=== PATIENT | male | born 1950 | race Caucasian/White ===

== ENCOUNTER 2016-11-18 15:53 | Inpatient (IN) | payer OTHER ==
[~2016-11-18] VITALS: Ht 170.2 cm; Wt 128.0 kg
[~2016-11-18 15:53] MED LIST: ACET500C5 PO; ACID1GRA2 PO; ASPI-515 PO; CARV3.1212 PO; CLON0.2T PO; ERTA1VIA IV; HYDR25TA6 PO; LISI-170 PO; NAPR220T77 PO; PRAV10TA2 PO; TRAM50TA2 PO; VERA180C2 PO
[2016-11-18] MEDS ORDERED: SODIUM CHLORIDE 0.9% 1,000 ML IV ONE ×2 (16:09→18:12)
[2016-11-18] MEDS ORDERED: SODIUM CHLORIDE FLUSH 10ML SYR IVF ONE (16:30)
[2016-11-18 16:35] LABS: HEMOGLOBIN 14.4 g/dL (13.7-18.0)
[2016-11-18 16:43] LABS: ASPARTATE AMINO TRANSFERASE 12 U/L (15-37); BLOOD UREA NITROGEN 23 mg/dL (7-18)
[2016-11-18 17:03] LABS: DIFF TOTAL CELLS COUNTED 100 CELL DIFF
[2016-11-18 17:05] LABS: VERIFY COUNTS? YES
[2016-11-18] MEDS ORDERED: CEFTRIAXONE PMX 1GM/50ML 50 ML IVPB ONE (18:00)
[2016-11-18] MEDS ORDERED: ACETAMINOPHEN 500 MG TABLET ONE (18:14)
[2016-11-18] MEDS ORDERED: CEFTRIAXONE PMX 1GM/50ML 50 ML ONE (18:14)
[2016-11-18] MEDS ORDERED: ONDANSETRON 2MG/ML, 2ML IVPush PRN (18:30)
[2016-11-18] MEDS ORDERED: ACETAMINOPHEN 500 MG TABLET PO ONE (18:30)
[2016-11-18] MEDS ORDERED: SODIUM CHLORIDE FLUSH 10ML SYR IVF PRN (18:30)
[2016-11-18] MEDS ORDERED: ONDANSETRON 2MG/ML, 2ML IVP PRN (19:00)
[2016-11-18] MEDS ORDERED: POLYETHYLENE GLYCOL 17 GM PACKET PO PRN (19:00)
[2016-11-18] MEDS ORDERED: BISACODYL 10 MG SUPP PR PRN (19:00)
[2016-11-18] MEDS ORDERED: MORPHINE SULFATE 4 MG/ML, 1ML IVPush PRN (19:00)
[2016-11-18] MEDS ORDERED: KETOROLAC 30 MG/1 ML IVPush PRN (19:00)
[2016-11-18 19:36] VITALS: BP 114/68
[2016-11-18] MEDS: NS + 20MEQ KCL 1,000 ML IV SCH (20:12)
[2016-11-18] MEDS: VERAPAMIL ER 180MG TABLET.ER PO SCH (20:22)
[2016-11-18] MEDS: LACTOBACILLUS 1GM/ PACKET PO SCH (20:22)
[2016-11-18] MEDS: CARVEDILOL 3.125 MG TABLET PO SCH (20:22)
[2016-11-18] MEDS: HEPARIN 5,000 UNITS/ML, 1ML SQ SCH (20:23)
[2016-11-19 02:58] VITALS: BP 120/71
[2016-11-19] MEDS: NS + 20MEQ KCL 1,000 ML IV SCH ×3 (04:13→21:33)
[2016-11-19] MEDS: ACETAMINOPHEN 325 MG TABLET PO PRN ×2 (04:13→20:57)
[2016-11-19] MEDS: HEPARIN 5,000 UNITS/ML, 1ML SQ SCH ×3 (05:00→21:04)
[2016-11-19 06:29] LABS: HEMOGLOBIN 12.9 g/dL (13.7-18.0)
[2016-11-19 06:41] LABS: BLOOD UREA NITROGEN 19 mg/dL (7-18)
[2016-11-19 06:46] LABS: ASPARTATE AMINO TRANSFERASE 10 U/L (15-37)
[2016-11-19 07:07] VITALS: BP 111/66
[2016-11-19 07:11] LABS: DIFF TOTAL CELLS COUNTED 100 CELL DIFF
[2016-11-19 07:13] LABS: VERIFY COUNTS? YES
[2016-11-19] MEDS: PRAVASTATIN 20 MG TABLET PO SCH ×2 (07:53→20:58)
[2016-11-19] MEDS: SENNA/DOCUSATE TABLET PO SCH (07:54)
[2016-11-19] MEDS: CARVEDILOL 3.125 MG TABLET PO SCH ×2 (07:54→20:58)
[2016-11-19] MEDS: LACTOBACILLUS 1GM/ PACKET PO SCH ×3 (07:54→20:58)
[2016-11-19] MEDS: VERAPAMIL ER 180MG TABLET.ER PO SCH ×2 (07:54→20:58)
[2016-11-19] MEDS: ASPIRIN 81 MG TABLET EC PO SCH (07:54)
[2016-11-19 14:09] VITALS: BP 97/59
[2016-11-19 16:46] VITALS: BP 113/72
[2016-11-19] MEDS: CEFTRIAXONE PMX 1GM/50ML 50 ML IV SCH (18:30)
[2016-11-19 19:46] VITALS: BP 113/64
[2016-11-20 02:00] VITALS: BP 99/61
[2016-11-20] MEDS: HEPARIN 5,000 UNITS/ML, 1ML SQ SCH ×3 (05:10→22:05)
[2016-11-20] MEDS: NS + 20MEQ KCL 1,000 ML IV SCH ×2 (05:10→13:38)
[2016-11-20 06:10] LABS: HEMOGLOBIN 12.3 g/dL (13.7-18.0)
[2016-11-20 06:16] LABS: ASPARTATE AMINO TRANSFERASE 15 U/L (15-37); BLOOD UREA NITROGEN 15 mg/dL (7-18)
[2016-11-20 07:13] VITALS: BP 148/88
[2016-11-20] MEDS: LACTOBACILLUS 1GM/ PACKET PO SCH ×3 (08:25→22:05)
[2016-11-20] MEDS: CARVEDILOL 3.125 MG TABLET PO SCH ×2 (08:26→22:05)
[2016-11-20] MEDS: ASPIRIN 81 MG TABLET EC PO SCH (08:26)
[2016-11-20] MEDS: VERAPAMIL ER 180MG TABLET.ER PO SCH ×2 (08:27→22:06)
[2016-11-20] MEDS: SENNA/DOCUSATE TABLET PO SCH (08:27)
[2016-11-20 12:56] VITALS: BP 146/92
[2016-11-20] MEDS: CEFTRIAXONE PMX 1GM/50ML 50 ML IV SCH (18:36)
[2016-11-20 19:08] VITALS: BP 126/83
[2016-11-20] MEDS: PRAVASTATIN 20 MG TABLET PO SCH (22:06)
[2016-11-21 02:10] VITALS: BP 143/90
[2016-11-21 05:52] LABS: HEMOGLOBIN 12.9 g/dL (13.7-18.0)
[2016-11-21 06:35] VITALS: BP 166/97
[2016-11-21] MEDS: VERAPAMIL ER 180MG TABLET.ER PO SCH (07:38)
[2016-11-21] MEDS: CARVEDILOL 3.125 MG TABLET PO SCH (07:38)
[2016-11-21] MEDS: ASPIRIN 81 MG TABLET EC PO SCH (07:39)
[2016-11-21] MEDS: LACTOBACILLUS 1GM/ PACKET PO SCH (07:39)
[2016-11-21] MEDS: SENNA/DOCUSATE TABLET PO SCH (07:40)
[2016-11-21] MEDS: HEPARIN 5,000 UNITS/ML, 1ML SQ SCH (07:43)
[2016-11-21] MEDS ORDERED: SULF1TAB24 PO (08:39)
== END 2016-11-21 11:13 | disposition home or self-care (01) | DRG 871 ==
LOC: ED 18:36 → EDIP 18:41 → 3NE 19:21 → DCLOUNGE 11-21 10:47
PROVIDERS: ADMIT Family Medicine; ATTEND Family Medicine
DX: A41.9 Sepsis, unspecified organism (principal); N17.0 Acute kidney failure with tubular necrosis; E87.1 Hypo-osmolality and hyponatremia; D68.9 Coagulation defect, unspecified; N12 Tubulo-interstitial nephritis, not specified as acute or chronic; N39.0 Urinary tract infection, site not specified; E87.6 Hypokalemia; G89.29 Other chronic pain; K44.9 Diaphragmatic hernia without obstruction or gangrene; M19.90 Unspecified osteoarthritis, unspecified site; I10 Essential (primary) hypertension; G47.33 Obstructive sleep apnea (adult) (pediatric); E78.5 Hyperlipidemia, unspecified; B96.20 Unspecified Escherichia coli [E. coli] as the cause of diseases classified elsewhere; Z86.010 Personal history of colon polyps; Z86.19 Personal history of other infectious and parasitic diseases; Z87.891 Personal history of nicotine dependence; Z79.899 Other long term (current) drug therapy; Z88.0 Allergy status to penicillin
CPT/HCPCS: 36415; 71010; 80053; 81001; 83605; 84145; 85025; 85610; 85730; 87040; 87077; 87086; 87186; 93005; 96365; J0696; J1644; J3480; J7030

== ENCOUNTER 2018-04-05 11:13 | Inpatient (IN) | payer MEDICARE, OTHER ==
[~2018-04-05] VITALS: Ht 170.2 cm; Wt 127.0 kg
[~2018-04-05 11:13] MED LIST changes: -ACID1GRA2 PO; +ACID1GRA3 PO; +SULF1TAB24 PO
[2018-04-05] MEDS ORDERED: ACETAMINOPHEN 500 MG TABLET ONE (12:16)
[2018-04-05] MEDS ORDERED: ACETAMINOPHEN 500 MG TABLET PO ONE (12:30)
[2018-04-05] MEDS ORDERED: ONDANSETRON ODT 8 MG PO ONE (12:30)
[2018-04-05 12:41] LABS: BASOPHILS # (AUTO) 0.02 x10^3/uL (0-0.1); BASOPHILS % (AUTO) 0 % (0-1); EOSINOPHILS # (AUTO) 0.05 x10^3/uL (0-0.4); EOSINOPHILS % (AUTO) 0 % (1-7); LYMPHOCYTES # (AUTO) 0.39 x10^3/uL (1-3.4); LYMPHOCYTES % (AUTO) 2 % (22-44); MD NO; MEAN CORPUSCULAR HGB CONC 32.8 g/dL (33.2-36.2); MEAN CORPUSCULAR VOLUME 91.5 fL (81-97); MEAN PLATELET VOLUME 8.2 fL (7.4-10.4); MONOCYTES # (AUTO) 0.61 x10^3/uL (0.2-0.8); MONOCYTES % (AUTO) 4 % (2-9); NEUTROPHILS # (AUTO) 15.56 x10^3/uL (1.8-6.8); NEUTROPHILS % (AUTO) 94 % (42-75); PLATELET COUNT 304 x10^3/uL (130-400); RED BLOOD COUNT 4.98 x10^6/uL (4.38-5.82); RED CELL DISTRIBUTION WIDTH 14.6 % (9.4-14.8)
[2018-04-05] MEDS ORDERED: ONDANSETRON ODT 4 MG ONE (12:50)
[2018-04-05 12:54] LABS: ALANINE AMINOTRANSFERASE 25 U/L (12-78); ALBUMIN 3.6 g/dL (3.4-5.0); ANION GAP 6 mmol/L (5-15); CHLORIDE 106 mmol/L (98-107); CREATININE 1.08 mg/dL (0.7-1.3)
[2018-04-05 12:55] LABS: ALKALINE PHOSPHATASE 69 U/L (45-117); BILIRUBIN,TOTAL 0.9 mg/dL (0.2-1.0); TOTAL PROTEIN 7.7 g/dL (6.4-8.2)
[2018-04-05 12:57] LABS: MICROSCOPIC AUTO
[2018-04-05 12:58] LABS: CULTURE INDICATED? YES
[2018-04-05 13:02] LABS: INTERNATIONAL NORMALIZED RATIO 1.01 (0.93-1.1); PROTHROMBIN TIME 10.5 Seconds (9.6-11.5)
[2018-04-05] MEDS ORDERED: CEFTRIAXONE 2 GM in SODIUM CHLORIDE 0.9% 50 ML IV SCH (13:30)
[2018-04-05] MEDS ORDERED: CEFTRIAXONE 1,000 MG in SODIUM CHLORIDE 0.9% 50 ML IV ONE (14:00)
[2018-04-05] MEDS ORDERED: ENALAPRILAT 1.25 MG/ML, 2ML IVPush PRN (14:00)
[2018-04-05] MEDS ORDERED: ONDANSETRON 2MG/ML, 2ML IVPush PRN (14:00)
[2018-04-05] MEDS ORDERED: OMEP20TA62 PO (14:07)
[2018-04-05] MEDS: SODIUM CHLORIDE 0.9% 1,000 ML IV SCH ×3 (15:07→21:23)
[2018-04-05] MEDS: HEPARIN 5,000 UNITS/ML, 1ML SQ SCH ×2 (15:51→20:19)
[2018-04-05 16:01] LABS: HEMOGLOBIN A1C 6.1 % (4.2-6.3)
[2018-04-05] MEDS: ACETAMINOPHEN 325 MG TABLET PO PRN (20:16)
[2018-04-05] MEDS: CARVEDILOL 3.125 MG TABLET PO SCH (20:18)
[2018-04-05] MEDS: LISINOPRIL 20 MG TABLET PO SCH (20:18)
[2018-04-05 20:19] VITALS: BP 158/92
[2018-04-06] MEDS: SODIUM CHLORIDE 0.9% 1,000 ML IV SCH ×3 (01:36→15:49)
[2018-04-06 02:43] VITALS: BP 138/87
[2018-04-06] MEDS: HEPARIN 5,000 UNITS/ML, 1ML SQ SCH (05:21)
[2018-04-06 05:51] LABS: MEAN CORPUSCULAR HEMOGLOBIN 30.9 pg (27.5-34.5); MEAN CORPUSCULAR HGB CONC 33.6 g/dL (33.2-36.2); MEAN CORPUSCULAR VOLUME 91.9 fL (81-97); MEAN PLATELET VOLUME 8.2 fL (7.4-10.4); PLATELET COUNT 283 x10^3/uL (130-400); RED CELL DISTRIBUTION WIDTH 14.7 % (9.4-14.8)
[2018-04-06 05:52] LABS: CHLORIDE 109 mmol/L (98-107)
[2018-04-06 06:13] LABS: ALANINE AMINOTRANSFERASE 19 U/L (12-78); ALBUMIN 2.7 g/dL (3.4-5.0); ALKALINE PHOSPHATASE 58 U/L (45-117); ANION GAP 7 mmol/L (5-15); BILIRUBIN,TOTAL 0.8 mg/dL (0.2-1.0); CALCIUM 8.1 mg/dL (8.5-10.1); CREATININE 1.08 mg/dL (0.7-1.3); TOTAL PROTEIN 6.3 g/dL (6.4-8.2)
[2018-04-06 06:14] LABS: BASOPHILS # (AUTO) 0.03 x10^3/uL (0-0.1); BASOPHILS % (AUTO) 0 % (0-1); EOSINOPHILS # (AUTO) 0.05 x10^3/uL (0-0.4); EOSINOPHILS % (AUTO) 0 % (1-7); LYMPHOCYTES # (AUTO) 0.86 x10^3/uL (1-3.4); LYMPHOCYTES % (AUTO) 5 % (22-44); MD SCAN; MONOCYTES # (AUTO) 1.57 x10^3/uL (0.2-0.8); MONOCYTES % (AUTO) 10 % (2-9); NEUTROPHILS # (AUTO) 14.06 x10^3/uL (1.8-6.8); NEUTROPHILS % (AUTO) 85 % (42-75)
[2018-04-06 08:00] VITALS: BP 158/94
[2018-04-06] MEDS ORDERED: CEFTRIAXONE 2 GM in SODIUM CHLORIDE 0.9% 50 ML IV SCH (08:00)
[2018-04-06] MEDS: ASPIRIN 81 MG TABLET EC PO SCH (09:00)
[2018-04-06] MEDS ORDERED: PIPERACILLIN/TAZO/PMX 3.375GM 50 ML IV SCH (09:00)
[2018-04-06] MEDS: MEROPENEM 1 GM in SODIUM CHLORIDE 0.9% 100 ML IV SCH ×3 (09:51→23:26)
[2018-04-06] MEDS: OMEPRAZOLE 20 MG CAPSULE.DR PO SCH (09:52)
[2018-04-06] MEDS: LISINOPRIL 20 MG TABLET PO SCH ×2 (09:52→21:10)
[2018-04-06] MEDS: CARVEDILOL 3.125 MG TABLET PO SCH ×2 (09:53→21:10)
[2018-04-06] MEDS: PRAVASTATIN 20 MG TABLET PO SCH (09:54)
[2018-04-06] MEDS: ACETAMINOPHEN 325 MG TABLET PO PRN ×2 (10:10→14:57)
[2018-04-06] MEDS: ENOXAPARIN 40 MG/0.4 ML SQ SCH (12:00)
[2018-04-06 12:16] VITALS: BP 125/80
[2018-04-06 12:19] VITALS: BP 120/84
[2018-04-06 14:00] VITALS: BP 153/91
[2018-04-06 20:10] VITALS: BP_SYST 136; BP_SYST 160; BP_DIAS 84; BP_DIAS 89
[2018-04-07 01:19] VITALS: BP 155/92
[2018-04-07] MEDS: SODIUM CHLORIDE 0.9% 1,000 ML IV SCH (05:15)
[2018-04-07 05:18] LABS: ALBUMIN 2.4 g/dL (3.4-5.0); ANION GAP 7 mmol/L (5-15); BASOPHILS % (AUTO) 0 % (0-1); CHLORIDE 111 mmol/L (98-107); EOSINOPHILS # (AUTO) 0.18 x10^3/uL (0-0.4); EOSINOPHILS % (AUTO) 1 % (1-7); LYMPHOCYTES # (AUTO) 0.91 x10^3/uL (1-3.4); LYMPHOCYTES % (AUTO) 6 % (22-44); MD NO; MEAN CORPUSCULAR HEMOGLOBIN 30.9 pg (27.5-34.5); MEAN CORPUSCULAR HGB CONC 33.6 g/dL (33.2-36.2); MEAN CORPUSCULAR VOLUME 91.9 fL (81-97); MEAN PLATELET VOLUME 8.5 fL (7.4-10.4); MONOCYTES # (AUTO) 1.27 x10^3/uL (0.2-0.8); MONOCYTES % (AUTO) 9 % (2-9); NEUTROPHILS # (AUTO) 12.02 x10^3/uL (1.8-6.8); NEUTROPHILS % (AUTO) 84 % (42-75); PLATELET COUNT 263 x10^3/uL (130-400); RED CELL DISTRIBUTION WIDTH 14.9 % (9.4-14.8)
[2018-04-07 05:21] LABS: ALANINE AMINOTRANSFERASE 17 U/L (12-78); ALKALINE PHOSPHATASE 65 U/L (45-117); BILIRUBIN,TOTAL 0.6 mg/dL (0.2-1.0); CREATININE 0.95 mg/dL (0.7-1.3); TOTAL PROTEIN 6.2 g/dL (6.4-8.2)
[2018-04-07 07:19] VITALS: BP 151/82
[2018-04-07] MEDS: LISINOPRIL 20 MG TABLET PO SCH ×2 (08:53→20:39)
[2018-04-07] MEDS: MEROPENEM 1 GM in SODIUM CHLORIDE 0.9% 100 ML IV SCH (08:53)
[2018-04-07] MEDS: OMEPRAZOLE 20 MG CAPSULE.DR PO SCH (08:53)
[2018-04-07] MEDS: PRAVASTATIN 20 MG TABLET PO SCH (08:54)
[2018-04-07] MEDS: ASPIRIN 81 MG TABLET EC PO SCH (08:54)
[2018-04-07] MEDS: CARVEDILOL 3.125 MG TABLET PO SCH ×2 (08:54→20:39)
[2018-04-07] MEDS: ENOXAPARIN 40 MG/0.4 ML SQ SCH (12:00)
[2018-04-07 13:13] VITALS: BP 151/84
[2018-04-07] MEDS: LEVOFLOXACIN/PMX 750MG/150ML 150 ML IV SCH (13:33)
[2018-04-07] MEDS ORDERED: SODIUM CHLORIDE 0.9% 1,000 ML IV SCH (13:58)
[2018-04-07 19:02] VITALS: BP 159/83
[2018-04-08 03:43] VITALS: BP 160/93
[2018-04-08 05:21] LABS: BASOPHILS # (AUTO) 0.06 x10^3/uL (0-0.1); BASOPHILS % (AUTO) 1 % (0-1); EOSINOPHILS # (AUTO) 0.29 x10^3/uL (0-0.4); EOSINOPHILS % (AUTO) 3 % (1-7); LYMPHOCYTES # (AUTO) 0.85 x10^3/uL (1-3.4); LYMPHOCYTES % (AUTO) 7 % (22-44); MD NO; MEAN CORPUSCULAR HEMOGLOBIN 30.9 pg (27.5-34.5); MEAN CORPUSCULAR HGB CONC 33.8 g/dL (33.2-36.2); MEAN CORPUSCULAR VOLUME 91.3 fL (81-97); MEAN PLATELET VOLUME 8.3 fL (7.4-10.4); MONOCYTES % (AUTO) 9 % (2-9); NEUTROPHILS % (AUTO) 80 % (42-75); PLATELET COUNT 287 x10^3/uL (130-400); RED BLOOD COUNT 4.31 x10^6/uL (4.38-5.82); RED CELL DISTRIBUTION WIDTH 14.7 % (9.4-14.8)
[2018-04-08 05:29] LABS: ALBUMIN 2.6 g/dL (3.4-5.0); ANION GAP 7 mmol/L (5-15); CALCIUM 8.7 mg/dL (8.5-10.1); CHLORIDE 109 mmol/L (98-107)
[2018-04-08 05:33] LABS: ALANINE AMINOTRANSFERASE 19 U/L (12-78); ALKALINE PHOSPHATASE 63 U/L (45-117); BILIRUBIN,TOTAL 0.4 mg/dL (0.2-1.0); CREATININE 1.01 mg/dL (0.7-1.3); TOTAL PROTEIN 6.6 g/dL (6.4-8.2)
[2018-04-08 06:51] VITALS: BP 130/99
[2018-04-08] MEDS: ASPIRIN 81 MG TABLET EC PO SCH (08:03)
[2018-04-08] MEDS: HYDROCHLOROTHIAZIDE 25 MG TABLET PO SCH (08:03)
[2018-04-08] MEDS: PRAVASTATIN 20 MG TABLET PO SCH (08:03)
[2018-04-08] MEDS: CARVEDILOL 3.125 MG TABLET PO SCH ×2 (08:03→20:16)
[2018-04-08] MEDS: OMEPRAZOLE 20 MG CAPSULE.DR PO SCH (08:03)
[2018-04-08] MEDS: LISINOPRIL 20 MG TABLET PO SCH ×2 (08:03→20:16)
[2018-04-08] MEDS ORDERED: AMLODIPINE 5 MG TABLET PO SCH (09:00)
[2018-04-08] MEDS: ENOXAPARIN 40 MG/0.4 ML SQ SCH (11:50)
[2018-04-08 12:25] VITALS: BP 153/97
[2018-04-08] MEDS: LEVOFLOXACIN/PMX 750MG/150ML 150 ML IV SCH (12:43)
[2018-04-08] MEDS: ACETAMINOPHEN 325 MG TABLET PO PRN ×2 (14:35→23:14)
[2018-04-08 19:19] VITALS: BP 138/88
[2018-04-09 01:54] VITALS: BP 137/82
[2018-04-09 05:28] LABS: BASOPHILS # (AUTO) 0.08 x10^3/uL (0-0.1); BASOPHILS % (AUTO) 1 % (0-1); EOSINOPHILS # (AUTO) 0.24 x10^3/uL (0-0.4); EOSINOPHILS % (AUTO) 3 % (1-7); LYMPHOCYTES % (AUTO) 12 % (22-44); MD NO; MEAN CORPUSCULAR HEMOGLOBIN 30.8 pg (27.5-34.5); MEAN CORPUSCULAR HGB CONC 33.7 g/dL (33.2-36.2); MEAN CORPUSCULAR VOLUME 91.2 fL (81-97); MONOCYTES # (AUTO) 1.13 x10^3/uL (0.2-0.8); MONOCYTES % (AUTO) 15 % (2-9); NEUTROPHILS # (AUTO) 5.13 x10^3/uL (1.8-6.8); NEUTROPHILS % (AUTO) 69 % (42-75); PLATELET COUNT 331 x10^3/uL (130-400); RED BLOOD COUNT 4.42 x10^6/uL (4.38-5.82); RED CELL DISTRIBUTION WIDTH 14.7 % (9.4-14.8)
[2018-04-09 05:57] LABS: CHLORIDE 105 mmol/L (98-107)
[2018-04-09 06:08] LABS: ALANINE AMINOTRANSFERASE 26 U/L (12-78); ALBUMIN 2.7 g/dL (3.4-5.0); ALKALINE PHOSPHATASE 66 U/L (45-117); ANION GAP 9 mmol/L (5-15); BILIRUBIN,TOTAL 0.5 mg/dL (0.2-1.0); CALCIUM 8.8 mg/dL (8.5-10.1); CREATININE 1.08 mg/dL (0.7-1.3); TOTAL PROTEIN 6.9 g/dL (6.4-8.2)
[2018-04-09] MEDS: LISINOPRIL 20 MG TABLET PO SCH (08:13)
[2018-04-09] MEDS: OMEPRAZOLE 20 MG CAPSULE.DR PO SCH (08:13)
[2018-04-09] MEDS: HYDROCHLOROTHIAZIDE 25 MG TABLET PO SCH (08:14)
[2018-04-09] MEDS: CARVEDILOL 3.125 MG TABLET PO SCH (08:14)
[2018-04-09] MEDS: ASPIRIN 81 MG TABLET EC PO SCH (08:15)
[2018-04-09 10:15] VITALS: BP 139/88
[2018-04-09] MEDS: ENOXAPARIN 40 MG/0.4 ML SQ SCH (11:02)
[2018-04-09] MEDS: LEVOFLOXACIN/PMX 750MG/150ML 150 ML IV SCH (13:15)
[2018-04-09] MEDS: ACETAMINOPHEN 325 MG TABLET PO PRN (13:32)
[2018-04-09] MEDS ORDERED: CEFD300C37 PO (14:17)
== END 2018-04-09 16:00 | disposition home or self-care (01) | DRG 871 ==
LOC: ED 13:11 → EDIP 13:12 → ED 13:27 → 3NE 14:35 → DCLOUNGE 04-09 15:47
PROVIDERS: ADMIT Internal Medicine; ATTEND Internal Medicine
DX: A41.51 Sepsis due to Escherichia coli [E. coli] (principal); E43 Unspecified severe protein-calorie malnutrition; N12 Tubulo-interstitial nephritis, not specified as acute or chronic; Z68.41 Body mass index [BMI] 40.0-44.9, adult; E66.01 Morbid (severe) obesity due to excess calories; E78.5 Hyperlipidemia, unspecified; G47.33 Obstructive sleep apnea (adult) (pediatric); I10 Essential (primary) hypertension; K21.9 Gastro-esophageal reflux disease without esophagitis; K44.9 Diaphragmatic hernia without obstruction or gangrene; K57.90 Diverticulosis of intestine, part unspecified, without perforation or abscess without bleeding; R73.9 Hyperglycemia, unspecified; N30.90 Cystitis, unspecified without hematuria; R65.20 Severe sepsis without septic shock; Z96.659 Presence of unspecified artificial knee joint; M19.90 Unspecified osteoarthritis, unspecified site; M54.5 Low back pain; Z87.11 Personal history of peptic ulcer disease; Z86.010 Personal history of colon polyps; Z88.0 Allergy status to penicillin; Z79.82 Long term (current) use of aspirin; Z79.899 Other long term (current) drug therapy
CPT/HCPCS: 36415; 71045; 80053; 81001; 83036; 83605; 85025; 85610; 85730; 87040; 87077; 87086; 87186; 93005; 96374; 99285; J0696; J1644; J1956; J2185; Q0162; J7030

== ENCOUNTER 2019-07-03 13:32 | Outpatient (CLI) | payer MEDICARE ==
[~2019-07-03 13:32] MED LIST changes: +CEFD300C37 PO; +OMEP20TA62 PO
== END 2019-07-03 23:59 | disposition home or self-care (01) ==
LOC: CVU 13:32
PROVIDERS: ATTEND Internal Medicine Cardiovascular Disease
DX: I08.0 Rheumatic disorders of both mitral and aortic valves (principal); Z82.5 Family history of asthma and other chronic lower respiratory diseases; Z87.891 Personal history of nicotine dependence; I10 Essential (primary) hypertension; E78.5 Hyperlipidemia, unspecified
CPT/HCPCS: 93306

== ENCOUNTER → 2019-07-22 | Outpatient (CLI) | payer MEDICARE ==
[~2019-07-22] MED LIST changes: +REGADENOSON 0.4 MG/5 ML SYRINGE ONE
== END | disposition home or self-care (01) ==
LOC: CFH 07:27
PROVIDERS: ATTEND Internal Medicine Cardiovascular Disease
DX: Z01.810 Encounter for preprocedural cardiovascular examination (principal); I10 Essential (primary) hypertension; Z87.891 Personal history of nicotine dependence
CPT/HCPCS: 78452; 93017; A9502; J2785

== ENCOUNTER 2021-01-01 21:05 | Emergency (ER) | payer MEDICARE ==
[~2021-01-01] VITALS: Ht 170.2 cm; Wt 121.0 kg
[~2021-01-01 21:05] MED LIST changes: -ASPI-515 PO; +ASPI-963 PO; -REGADENOSON 0.4 MG/5 ML SYRINGE ONE; +SULF-23 PO; -SULF1TAB24 PO
--- NOTE | 2021-01-01 21:12 | NUR ---
DESMOND, CC OF ACUTE ABD PAIN IN CENTER ABD, FEELS LIKE "KNOTS", 8/10 WHILE EATING DINNER. PT ALSO STATES HE FELT "CLAMMY" AND THAT IS A SIGN OF HIGH BP FOR HIM. PT ADMITS TO FORGETTING TO TAKE PM BP MEDS FOR LAST 2 NIGHTS. EMS GAVE MORPHINE AND ZOFRAN, PAIN NOW 11/16.
[2021-01-01] MEDS ORDERED: HYDR25TA6 PO (21:19)
[2021-01-01] MEDS ORDERED: LISINOPRIL 20 MG TABLET ONE (21:25)
[2021-01-01] MEDS ORDERED: CARVEDILOL 3.125 MG TABLET ONE (21:26)
[2021-01-01] MEDS ORDERED: LISINOPRIL 20 MG TABLET PO ONE (21:30)
[2021-01-01] MEDS ORDERED: VERAPAMIL ER 180MG TABLET.ER PO ONE (21:30)
[2021-01-01] MEDS ORDERED: CARVEDILOL 3.125 MG TABLET PO ONE (21:30)
[2021-01-01 21:53] LABS: BASOPHILS % (AUTO) 1 % (0-1); EOSINOPHILS % (AUTO) 1 % (1-7); LYMPHOCYTES % (AUTO) 9 % (22-44); MEAN CORPUSCULAR HEMOGLOBIN 31.4 pg (27.5-34.5); MEAN CORPUSCULAR HGB CONC 33.4 g/dL (33.2-36.2); MEAN PLATELET VOLUME 7.7 fL (7.4-10.4); MONOCYTES % (AUTO) 7 % (2-9); NEUTROPHILS % (AUTO) 82 % (42-75); PLATELET COUNT 359 x10^3/uL (130-400); RED BLOOD COUNT 4.96 x10^6/uL (4.38-5.82); RED CELL DISTRIBUTION WIDTH 14.7 % (9.4-14.8)
[2021-01-01 21:54] LABS: MD NO
[2021-01-01 22:00] LABS: ALANINE AMINOTRANSFERASE 21 U/L (12-78); ALBUMIN 3.8 g/dL (3.4-5.0); ANION GAP 7 mmol/L (5-15); CALCIUM 9.3 mg/dL (8.5-10.1); CHLORIDE 109 mmol/L (98-107); CREATININE 1.11 mg/dL (0.7-1.3)
[2021-01-01] MEDS ORDERED: OMNIPAQUE 350 MG/ML, 100ML BOTTLE ONE (22:00)
[2021-01-01 22:04] LABS: ALKALINE PHOSPHATASE 64 U/L (45-117); BILIRUBIN,TOTAL 0.4 mg/dL (0.2-1.0); TROPONIN I < 0.015 ng/mL (0.000-0.045)
[2021-01-01] MEDS ORDERED: ONDANSETRON 2MG/ML, 2ML ONE (22:20)
[2021-01-01] MEDS ORDERED: MORPHINE SULFATE 4 MG/ML, 1ML ONE (22:20)
--- NOTE | 2021-01-01 22:24 | NUR ---
PT REPORT PAIN IN ABD INCREASING AFTER MOVING AROUND TO URINATE. DR EAST AWARE, ORDERS PLACED.
--- NOTE | 2021-01-01 22:24 | NUR ---
PT TO CT
[2021-01-01] MEDS ORDERED: MORPHINE SULFATE 4 MG/ML, 1ML IVPush PRN (23:00)
[2021-01-01] MEDS ORDERED: ONDANSETRON 2MG/ML, 2ML IVPush ONE (23:00)
[2021-01-01] MEDS ORDERED: MAALOX/HYOSCYAMINE/LIDOCAINE 45 ML BTL PO ONE (23:30)
[2021-01-01] MEDS ORDERED: hydrALAzine 20 MG/ML, 1ML ONE (23:59)
[2021-01-02] MEDS ORDERED: hydrALAzine 20 MG/ML, 1ML IV ONE
[2021-01-02] MEDS ORDERED: MAALOX/HYOSCYAMINE/LIDOCAINE 45 ML BTL ONE
--- NOTE | 2021-01-02 00:04 | NUR ---
PT STATES HE HAS NO RELIEF IN PAIN. PT MEDICATED WITH GI COCKTAIL.
[2021-01-02] MEDS ORDERED: HYDROmorphone 1 MG/ML, 1ML INJ ONE (00:36)
[2021-01-02] MEDS ORDERED: ONDANSETRON 2MG/ML, 2ML ONE (00:45)
--- NOTE | 2021-01-02 00:53 | NUR ---
PT REPORTS NO RELIEF IN PAIN, GIVEN DILAUDID. SHORTLY AFTER PT BECAME NAUSEOUS AND VOMITED. IMMEDIATELY AFTER VOMITING PT REPORTS FEELING "MUCH BETTER".
[2021-01-02] MEDS ORDERED: HYDROmorphone 1 MG/ML, 1ML INJ IV ONE (01:00)
[2021-01-02] MEDS ORDERED: ONDANSETRON 2MG/ML, 2ML IVPush ONE (01:00)
[2021-01-02 02:00] VITALS: BP 178/118
== END 2021-01-02 02:08 | disposition home or self-care (01) ==
LOC: ED 22:46
DX: R10.13 Epigastric pain (principal); R11.2 Nausea with vomiting, unspecified; I10 Essential (primary) hypertension; Z87.891 Personal history of nicotine dependence
CPT/HCPCS: 36415; 71045; 74177; 80053; 83605; 83690; 84484; 85025; 93005; 96374; 96375; 96376; 99285; J0360; J1170; J2270; J2405; Q9967